=== PATIENT | male | born 1965 | race Caucasian/White ===

== ENCOUNTER 2018-06-21 15:27 | Emergency (ER) | payer OTHER ==
[~2018-06-21] VITALS: Wt 90.7 kg
[~2018-06-21 15:27] MED LIST: AMOXICILLIN500 M2 PO; ZYRTEC10 MG PO
[2018-06-21 15:48] LABS: BASO % 0.3 % (0.0-1.0); EOS % 0.1 % (1.0-4.0); HEMATOCRIT 41.5 % (42.0-52.0); HEMOGLOBIN 14.3 g/dl (14.0-18.0); LYMPH # 0.9 10*3/uL (1.3-4.4); LYMPH % 12.5 % (27.0-41.0); MEAN CELL VOLUME 86.5 fl (80.0-94.0); MEAN CORPUSCULAR HGB 29.8 pg (27.0-31.0); MEAN CORPUSCULAR HGB CONC 34.5 g/dl (33.0-37.0); MEAN PLATELET VOLUME 9.7 fl (9.6-12.3); MONO # 0.9 10*3/uL (0.1-1.0); MONO % 11.7 % (3.0-9.0); NEUT # 5.7 10*3/uL (2.3-7.9); NEUT % 75.3 % (47.0-73.0); PLATELET COUNT AUTOMATED 172 10*3/uL (130-400); RED CELL DISTRI WIDTH 11.9 % (0-14.5); WHITE BLOOD COUNT 7.6 10*3/uL (4.8-10.8)
[2018-06-21 16:11] LABS: ALBUMIN 3.5 gm/dl (3.1-4.5); ALKALINE PHOSPHATASE 55 U/L (45-117); BUN 16 mg/dl (7-24); CHLORIDE 100 mmol/L (98-107); CREATININE 0.85 mg/dL (0.70-1.30); LIPASE 55 U/L (73-393); POTASSIUM 3.6 mmol/L (3.5-5.1); SGOT/AST 20 IU/L (3-35); SGPT/ALT 22 U/L (12-78); SODIUM 135 mmol/L (136-145); TOTAL PROTEIN 8.1 gm/dL (6.4-8.2)
[2018-06-21] MEDS ORDERED: TAMIFLU 75MG CA75 MG PO (17:18)
== END 2018-06-21 17:18 | disposition home or self-care (01) ==
LOC: ED 15:27
PROVIDERS: Nurse Practitioner Family
DX: R73.9 Hyperglycemia, unspecified (principal); J10.1 Influenza due to other identified influenza virus with other respiratory manifestations; E86.0 Dehydration; Z79.2 Long term (current) use of antibiotics; Z79.899 Other long term (current) drug therapy